=== PATIENT | male | born 1970 | race Caucasian/White ===

== ENCOUNTER 2016-12-02 07:30 | Emergency (ER) | payer MEDICAID, OTHER ==
[~2016-12-02] VITALS: Ht 170.2 cm; Wt 66.5 kg
[2016-12-02 07:33] VITALS: Ht 170.2 cm; Wt 66.5 kg
--- NOTE | 2016-12-02 08:01 | ERD ---
ER Documentation Chief Complaint Date/Time DATE: 12/02/16 TIME: 07:56 Chief Complaint FATIGUE & DIZZY, CHRONIC ANEMIA FEELS LIKE BLOOD LEVEL IS LOW HPI 46-year-old male with history of aplastic anemia referred to the ED for hemoglobin check and possible blood transfusion. Hemoglobin usually runs between 9.7 and 10.2 but last week was 9.0 mg/dL. He is being treated with cyclosporine. Reports a 2-3 week history of generalized fatigue and weakness. Denies chest pain, palpitations or shortness of breath. No headache, visual changes, focal weakness or numbness. Denies hematemesis, hematochezia, melanotic stools, hematuria or easy bruisability. No URI symptoms, cough, fevers or chills. No anorexia, night sweats or weight loss. ROS All systems reviewed and are negative except as per history of present illness. Allergies Allergies: Coded Allergies: No Known Allergy (Unverified , 12/02/16) PMhx/Soc Reviewed in chart. As per HPI History of Surgery: No Anesthesia Reaction: No Hx Neurological Disorder: No Hx Respiratory Disorders: No Hx Cardiac Disorders: No Hx Psychiatric Problems: No Hx Miscellaneous Medical Probl: Yes (Aplastic anemia) Hx Alcohol Use: No Hx Substance Use: No Hx Tobacco Use: No FmHx Maternal aunt: Gastric cancer. No family history of stroke, coronary artery disease or bleeding dyscrasias Physical Exam Vitals Vital Signs Date Time Temp Pulse Resp B/P Pulse Ox O2 Delivery O2 Flow Rate FiO2 12/02/16 07:48 69 18 137/81 100 12/02/16 07:33 97.7 77 18 136/63 100 Physical Exam Const: Alert, anxious Head: Atraumatic Eyes: EDER. EOMI. Pale conjunctiva ENT: Normal External Ears, Nose and Mouth. Neck: Full range of motion. Nontender. No meningismus. Carotids 2+ bilaterally without bruits. Resp: Breath sounds are equal and clear to auscultation bilaterally. No rales rhonchi or wheezes. Cardio: Regular rate and rhythm, no murmurs, gallops or rubs. Abd: Soft, non tender, non distended. Normal bowel sounds. No masses or abnormal pulsations. Skin: No petechiae or rashes Back: No midline or flank tenderness Ext: No cyanosis, or edema. Pulses 4+ in all extremities. Neur: Awake and alert. Cranial nerves II through XII are grossly intact. Normal gait. Motor and sensory equal bilaterally. Psych: Appears anxious but not depressed. Result Diagram: 12/02/16 0740 12/02/16 0740 Results 24 hrs Laboratory Tests Test 12/02/16 07:40 White Blood Count 2.910^3/ul Red Blood Count 2.5110^6/ul Hemoglobin 9.1g/dl Hematocrit 25.3% Mean Corpuscular Volume 100.8fl Mean Corpuscular Hemoglobin 36.3pg Mean Corpuscular Hemoglobin Concent 36.0g/dl Red Cell Distribution Width 14.3% Platelet Count 9210^3/UL Mean Platelet Volume 11.2fl Neutrophils % 36.7% Lymphocytes % 54.4% Monocytes % 7.4% Eosinophils % 0.7% Basophils % 0.4% Nucleated Red Blood Cells % 0.0/100WBC Neutrophils # 1.110^3/ul Lymphocytes # 1.610^3/ul Monocytes # 0.210^3/ul Eosinophils # 0.010^3/ul Basophils # 0.010^3/ul Nucleated Red Blood Cells # 0.010^3/ul Sodium Level 140mmol/L Potassium Level 4.3mmol/L Chloride Level 105mmol/L Carbon Dioxide Level 25mmol/L Anion Gap 14 Blood Urea Nitrogen 20mg/dl Creatinine 1.05mg/dl Glucose Level 145mg/dl Calcium Level 9.7mg/dl Total Bilirubin 0.9mg/dl Direct Bilirubin 0.00mg/dl Indirect Bilirubin 0.9mg/dl Aspartate Amino Transf (AST/SGOT) 28IU/L Alanine Aminotransferase (ALT/SGPT) 35IU/L Alkaline Phosphatase 68IU/L Total Protein 7.7g/dl Albumin 5.1g/dl Globulin 2.60g/dl Albumin/Globulin Ratio 1.96 Lab interpretation: Pancytopenia. Procedures/MDM DOCUMENTS REVIEWED: ED nurse, no prior records MEDICAL DECISION MAKIN-year-old male with history of aplastic anemia referred to the ED for hemoglobin check and possible blood transfusion. Symptomatic anemia but no indication for transfusion at this time as his hemoglobin is 9.1 mg/dL. no chest pain or evidence of cardiac insufficiency. No evidence of acute bleeding. Hemodynamically stable. Stable for discharge with precautionary instructions and referred back to his primary care physician for further evaluation and management. Counseled patient regarding diagnostic workup, diagnosis and need for followup. Understands to return to ED if symptoms recur, worsen or any other concerns. 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
[2016-12-02 08:29] LABS: ADD SCAN DIFF NO
[2016-12-02 08:36] LABS: ABNORMAL IP MESSAGE 1; BASOPHILS % 0.4 % (0.0-2.0); EOSINOPHILS % 0.7 % (0.0-7.0); HEMATOCRIT 25.3 % (42.0-52.0); HEMOGLOBIN 9.1 g/dl (14.0-18.0); LYMPHOCYTES # 1.6 10^3/ul (0.8-2.9); LYMPHOCYTES % 54.4 % (15.0-51.0); MEAN CORPUSCULAR HEMOGLOBIN 36.3 pg (29.0-33.0); MEAN CORPUSCULAR VOLUME 100.8 fl (82.0-101.0); MEAN PLATELET VOLUME 11.2 fl (7.4-10.4); MONOCYTE # 0.2 10^3/ul (0.3-0.9); MONOCYTES % 7.4 % (0.0-11.0); NEUTROPHIL # 1.1 10^3/ul (1.6-7.5); NEUTROPHILS % 36.7 % (39.0-77.0); PLATELET COUNT 92 10^3/UL (140-415); RED BLOOD COUNT 2.51 10^6/ul (4.70-6.10); RED CELL DISTRIBUTION WIDTH 14.3 % (11.5-14.5); WHITE BLOOD COUNT 2.9 10^3/ul (4.8-10.8)
[2016-12-02 09:00] LABS: ALBUMIN 5.1 g/dl (3.3-4.9); ALBUMIN/GLOBULIN RATIO 1.96; BILIRUBIN,INDIRECT 0.9 mg/dl (0-1.1); BILIRUBIN,TOTAL 0.9 mg/dl (0.2-1.3); CALCIUM 9.7 mg/dl (8.4-10.2); CREATININE 1.05 mg/dl (0.61-1.24); POTASSIUM 4.3 mmol/L (3.5-5.1); TOTAL PROTEIN 7.7 g/dl (6.1-8.1)
[2016-12-02 09:15] VITALS: BP 114/69; PULSE 64; RESP 18
== END 2016-12-02 09:29 | disposition home or self-care (01) ==
LOC: E/R 07:30
DX: R53.1 Weakness (principal); D61.3 Idiopathic aplastic anemia
CPT/HCPCS: 80053; 85025; 86850; 86900; 86901; Z7502; 99283